=== PATIENT | female | born 1970 | race Caucasian/White ===

== ENCOUNTER → 2016-07-22 | Outpatient (CLI) | payer MEDICAID ==
[~2016-07-22] MED LIST: PERCOCET 5-3251 EACH PO; TAMOXIFEN CITRA20 MG PO; ULTRAM50 MG PO
== END | disposition disaster alternative care site (69) ==
LOC: GRAD 10:24
PROVIDERS: Family Medicine
DX: M54.9 Dorsalgia, unspecified (principal); D49.7 Neoplasm of unspecified behavior of endocrine glands and other parts of nervous system; M84.48XD Pathological fracture, other site, subsequent encounter for fracture with routine healing; M48.04 Spinal stenosis, thoracic region; M89.9 Disorder of bone, unspecified; K76.89 Other specified diseases of liver; R20.0 Anesthesia of skin; R93.7 Abnormal findings on diagnostic imaging of other parts of musculoskeletal system

== ENCOUNTER 2016-07-31 14:00 | Inpatient (IN) | payer MEDICAID ==
[~2016-07-31] VITALS: Ht 167.6 cm; Wt 80.3 kg
--- NOTE | ~2016-07-31 | LTR ---
PATIENT'S NAME: ANDREW HUNT [facility] AGE: 45 Y [address] ROOM: [place] [address] LOCATION: [facility] [place] ADMIT DATE: 08/01/2016 Letter DISCHARGE DATE: 08/07/2016 FAMILY PHYSICIAN: Rufus Lopez MD ATTENDING PHYSICIAN: Diana Palacios August 07, 2016 Re: ANDREW HUNT [facility] Hematology and Oncology Ms. Corey Perez was admitted to [facility] and seen on Dr. Palacios's Surgical Service. On 08/01/2016, Dr. Palacios performed a bilateral laminectomy with decompression of spinal cord, removal of epidural tumor, and a part of T2 and T3. He performed posterior instrumentation with pedicle screws bilaterally at T1, T2, T4, and T5. He performed a posterior fusion with morselized allograft bone. He used the frameless stereotactic system for navigation and used the O-arm for intraoperative localization. The patient tolerated the procedure well and was discharged on the 5th postoperative day. Dr. Whitaker saw the patient. The tissue revealed adenocarcinoma. The hormone receptor and HER-2 oncogene status are still being assayed. Dr. Whitaker recommended the patient stay on tamoxifen until she returned to our office on 08/22/2016. The patient will get an MRI of the brain and a bone scan as an outpatient. The patient is still premenopausal, so the potential benefit of an oophorectomy perhaps followed by an aromatase inhibitor and possibly palbociclib if the patient is not treated on a clinical trial would be warranted. There probably is a clinical trial that she would be eligible for. If the patient has nonmeasurable disease, however, she would not be eligible for E2112. The patient was seen by Dr. Scales in consultation and Dr. Gasca will evaluate her for the potential benefit of postoperative radiation therapy. MD JAMIE Dove/kathleen /[id number] PATIENT'S NAME: ANDREW HUNT [facility] AGE: 45 Y [address] ROOM: [place] [id number] LOCATION: [facility] ADMIT DATE: 08/01/2016 Letter DISCHARGE DATE: 08/07/2016 FAMILY PHYSICIAN: Rufus Lopez MD ATTENDING PHYSICIAN: Diana Palacios CC: MD Shelbi Lopez MD, PhD Diana Palacios MD
--- NOTE | ~2016-07-31 | CONS ---
PATIENT'S NAME: ANDREW HUNT [facility] AGE: 45 Y [address] 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 Dear Doctor: Ms. Andrew Perez was seen in routine inpatient consultation today. As you recall, this is a 45-year-old white female with a previous history of two primary carcinomas of the breast in the left breast, initially staged as stage IIA, T2 N0 M0, and T1 N0 M0 adenocarcinoma of the left breast, status post left mastectomy on 11/07/2011. The patient , prior to that, had had a mammogram which revealed a 0.9 cm lesion in the retroareolar area and a second lesion in the far posterior central left breast. The patient underwent a mastectomy revealing one lesion measuring 2.7 cm in size, the other measuring 1.4 cm in size. She was ER positive, TN positive, HER2 2+ by IHC and negative by FISH. The patient did not undergo adjuvant chemo or radiotherapy, was placed on tamoxifen, and recently started having complaints of back pain which brought her to the attention of physicians. The patient underwent scans which revealed the patient to have multiple lesions in the thoracic spine and multiple areas of the back including T2-T3, T3-T4, C7, T1, T5, T9, and L2. Also noted were at least two large lesions in the liver, which were suspicious. The T3 lesion had a pathologic fracture with epidural tumor resulting in canal stenosis which was moderately severe. The patient subsequently on 08/01/[address] Palacios's care where she had a bilateral laminectomy with decompression of the spinal cord and removal of the epidural tumor at T3 and part of T2; posterior instrumentation with pedicle screw placement at T1, T2, T4, and T5; posterior fusion with morselized allograft bone; and use of frameless stereotactic system for navigation. PATIENT'S NAME: MARIA TERESA PEREZ [facility] AGE: 45 Y [address] ROOM: [place] [address] [place] [facility] [place]MIT DATE: 08/01/2016 Oncology Report DISCHARGE DATE: FAMILY PHYSICIAN: Rufus Lopez MD ATTENDING PHYSICIAN: Diana Palacios We are awaiting final pathology on this patient. Pathology has come back as metastatic adenocarcinoma. ER status, TN status, and HER-2/micky status have been ordered. We are asked to see this patient in inpatient consultation. When seen today, the patient is lying in a chair. She is doing reasonably well, but she does complain of back pain. She has a dressing in place. Her brother is in the room. The patient indicates that she has had the back pain for a period of time which brought her to the attention of her physician. She indicates she is aware of the fact that she had lesions seen on scan. She states that she is not aware of final pathology as of yet. We indicated to the patient that pathology was pending and we would await final pathology including ER, TN, and HER-2/micky status. The patient otherwise indicates she is doing well. Denies fevers, chills, night sweats, and weight loss. ALLERGIES: NO KNOWN DRUG ALLERGIES. MEDICATIONS: Current medications include: 1. Ultram. 2. Tamoxifen. 3. Phenergan. 4. Zofran. 5. Nubain. 6. Morphine. 7. Fleet. 8. Dulcolax. 9. Percocet. 10. Milk of magnesia. 11. Tylenol. 12. Valium. 13. Zofran. PAST SURGICAL HISTORY: Positive for left-sided mastectomy in 2011. The patient has had two C sections and a D and C. PAST MEDICAL HISTORY: Positive for significant problems with her eyesight, history of breast cancer diagnosed in 2011. PATIENT'S NAME: MARIA TERESA PEREZ [facility] AGE: 45 Y [address] ROOM: [place] [address] [place]: [facility] [place] ADMIT DATE: 08/01/2016 Oncology Report DISCHARGE DATE: FAMILY PHYSICIAN: Rufus Lopez MD ATTENDING PHYSICIAN: Diana Palacios FAMILY HISTORY: The patient indicates she had a grandparent, who had a possible liver cancer, grandmother may have had a gynecologic malignancy. She indicates her father was recently diagnosed with a head and neck cancer. SOCIAL HISTORY: The patient was born in [place], lives in [place], [place]. The patient is . 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 She indicates she does not and did not smoke, does not drink alcohol, no history of drug use. The patient gives no previous history of radiation therapy or chemotherapy. She does indicate she has been on tamoxifen. REVIEW OF SYSTEMS: GENERAL: The patient denies headaches. Indicates her hearing is within normal limits. EYES: Vision: The patient does have significant problems with vision. ORAL CAVITY: No complaints or problems with oral cavity. NECK: No complaints of problems with her neck. LUNGS: No problems with her lungs noted. HEART: No problems with arm pain. STOMACH: No problems with reflux noted. No problems with blood in her stool. : No problems passing her urine. No blood in her urine noted. GYNECOLOGIC: The patient is a 3, para 2. MUSCULOSKELETAL: The patient denies any history of fracture. ENDOCRINE: No history of thyroid problems or diabetes. PHYSICAL EXAMINATION: VITAL SIGNS: Include a temperature of 98.8, a pulse of 82, a blood pressure of 124/69, a weight of 76 kg. GENERAL: A well-developed, well-nourished white female, in no apparent distress. HEAD AND NECK: Normocephalic, atraumatic. Extraocular motions are intact. Oral cavity: No masses or mycotic lesions. Neck with no masses noted. The patient does have a triple-lumen catheter in place in the area of the right neck with appropriate dressing in place. Examination of the patient's back reveals a dressing in place in the upper thoracic area. This appears to be within normal limits. No areas of breakdown. No bleeding. No areas of infection noted. CHEST: The patient's right axilla is within normal limits. Right breast soft, nontender. No masses noted. No discharge elicited. Left axilla within normal limits. Left chest wall with a healed surgical scar. The patient does have a breast cancer tattoo noted in the upper inner quadrant of the left chest wall. ABDOMEN: Soft, nontender. PATIENT'S NAME: ANDREW HUNT [facility] AGE: 45 Y [address] ROOM: [id number] [place], [place] [address] LOC[place]: [facility] [place]MIT DATE: 08/01/2016 Oncology Report DISCHARGE DATE: FAMILY PHYSICIAN: Rufus Lopez MD ATTENDING PHYSICIAN: Diana Palacios PELVIS: Pelvic region within normal limits. It is soft and nontender. Limited physical exam. EXTREMITIES: Without clubbing, cyanosis, or edema. The patient does have bilateral JASMIN stockings in place. NEUROLOGIC: The patient is alert and oriented x3. Cranial nerves with the exception of vision appear to be within normal limits. Strength appears to be within normal limits, upper and lower extremities. We did not attempt to walk the patient. MINI MENTAL EXAM: Grossly normal. This concluded the limited physical exam of this patient. LABORATORY DATA: The patient has had multiple scans done including a MRI of the thoracic spine with and without contrast done on 07/22. This revealed multiple bony lesions including T2-T3, T3-T4. Smaller lesions present in C7, T1, T5, T9, L2. Two large lesions noted in the liver, highly suspicious for metastatic disease. Pathology initially is read as that of adenocarcinoma, consistent with her previous carcinoma of the breast diagnosed in 2011. ER status, TN status, and HER2/micky status are pending. ICD-10. IMPRESSION: A 45-year-old white female with metastatic adenocarcinoma of the breast. Final pathology regarding the receptor status pending. PLAN: We discussed with the patient the options available to her. We indicated to her we would await final pathology and Medical Oncology consult. Further, we indicated to her that given that she had surgery to the area of the thoracic spine and had an appliance in place, we would consider this area for radiotherapy in an attempt to sterilize the region and minimize the chance of recurrence. We went over the potential risks and benefits of radiation therapy, indicated we would consider her for radiotherapy per NCCN guidelines to be given to a dose of 3000 cGy in 10 fractions at 300 cGy per day. The patient understood the conversation and asked appropriate questions. These were answered to her satisfaction. The patient will be brought down for simulation sometime early next week. We would anticipate starting her on radiotherapy to the affected area at about 2-3 weeks post-surgery. We thank you for allowing us to consult on this most pleasant patient. Sincerely, PATIENT'S NAME: ANDREW HUNT [facility] AGE: 45 Y [address] ROOM: [address] [place] [id number] LOC[place]: [facility] [place]MIT DATE: 08/01/2016 Oncology Report DISCHARGE DATE: FAMILY PHYSICIAN: Rufus Lopez MD ATTENDING PHYSICIAN: Diana Palacios HERNANDEZ ANDRADE MD, PHD FZL/modl /[id number] CC: MD Rufus Escalera MD Chinyere N Obasi, MD d: 08/05/16 2303 t: 08/13/16 0925, CONSULTATION REPORT
--- NOTE | ~2016-07-31 | CON ---
PATIENT'S NAME: ANDREW HUNT [facility] AGE: 45 Y [address] ROOM: [address] [address] [place]: [facility] [place]MIT DATE: 08/01/2016 Consultation DISCHARGE DATE: FAMILY PHYSICIAN: Rufus Lopez MD ATTENDING PHYSICIAN: Diana Palacios REFERRING PHYSICIAN: Maggie Whitaker MD This is a consult for Dr. Palacios. Dear Dr. Palacios: Ms. Corey Perez is a 45-year-old lady, who is referred for rehab/GIRP admission evaluation. She is, as you know, status post; 1. Bilateral decompression laminectomy of T3 and part of T2 and removal of epidural tumor, metastatic mostly. 2. Posterior instrumentation with pedicle screw application at bilateral T1- T2 and T4-T5. 3. Posterior fusion with morselized allograft bone T1 through T5. This was done for metastatic tumor of spine with compression of the cord in the upper thoracic spinal cord as was done on 08/01/2016, details on record. She felt that she had a heavy right shoulder marked discomfort, which was getting progressively worse. She has significant past history of left breast cancer excised in 2013 and she was followed in [facility], details of which are not very clear to me. However, she denied having any radiation or chemotherapy as much as she told me. She is, at the present time, alert and oriented x3. She can comprehend, express without difficulty. Her voice is clear. She can breathe and saturate at room air without difficulty. VITAL SIGNS: Blood pressure 129/67, temperature 98.6, pulse 91 and regular, respiration rate 20, she is 5 feet and 6 inches tall, and weighs 80.3 kg. At the present time, she can swallow, can move all 4. Muscle strength throughout is about 4-/5. Cannot endure though. Can transfers with supervision to minimum assistance of 1 with contact guard assistance at times. She can follow instructions without much difficulty. At this time, she can ambulate up to 75 feet x1 with a front-wheeled walker and a gait belt with contact guard assistance. PATIENT'S NAME: ANDREW HUNT [facility] AGE: 45 Y [address] ROOM: [address] [address] LOC[place]: [facility] [place]MIT DATE: 08/01/2016 Consultation DISCHARGE DATE: FAMILY PHYSICIAN: Rufus Lopez MD ATTENDING PHYSICIAN: Diana Palacios At this time, she is neurologically intact. Deep tendon reflexes are slightly brisk throughout bilateral upper and lower extremities. Sensation is within normal limits. She can control both bowel and bladder. She is on the following medications; 1. Toradol. 2. Tamoxifen. 3. Senna and DSS. 4. Phenergan. 5. Zofran. 6. Nubain. 7. Morphine sulfate. 8. Narcan. 9. Fleet enema. 10. Dulcolax suppository. 11. MOM. 12. Percocet. 13. Tylenol. 14. Valium. 15. NaCl 0.9%. 16. Lactated Ringer. At this time, she is doing fairly well given the recent surgery. I feel that this lady will benefit from intensive rehabilitation of about 10 to 14 days, aiming to discharge on modified independence and follow on outpatient basis. She has been initiated on PT and OT, which I will continue. Please see my notes. All the above was explained to her in detail. Please see my notes on chart. All the above was explained to her in detail and she verbalized understanding and agreement with plan of care. Thank you for this referral. MD JULISSA VILLARREAL/briannal /[id number] d: 08/04/162023 t: 08/06/16 0811, CONSULTATION REPORT
--- NOTE | ~2016-07-31 | CON ---
PATIENT'S NAME: ANDREW HUNT [facility] AGE: 45 Y [address] ROOM: [id number] [place], [place] [address] LOCATION: [facility] [place] ADMIT DATE: 08/01/2016 Consultation DISCHARGE DATE: FAMILY PHYSICIAN: Rufus Lopez MD ATTENDING PHYSICIAN: Diana Palacios'bogdan provider 08/06/16 AO DATE OF CONSULTATION: 08/05/2016 REFERRING PHYSICIAN: Jakob Whitaker MD HISTORY OF PRESENT ILLNESS: The patient is a 45-year-old female who presented Dr. Lopez with numbness and tingling in her right axilla. She said that she was diagnosed when she was younger with some bone on bone on one of her disks in her back, and she thought the numbness was just from old disk issues. However, she had increasing problems with some numbness and tingling in her right arm and she did go and see Dr. Lopez who performed x-rays and MRI scan of her thoracic spine on 07/22/2016. On 07/22/2016, the patient had an MRI of her T-spine, which showed a T3 diffusely infiltrating tumor with moderate pathologic fracture, asymmetry extending to the right with epidural tumor effacement on the right T2-T3, and T3-T4 intervertebral foramina with moderate to severe canal stenosis without cord compression. On the MRI scan, there was also a suspicious lesion in the liver as well. The patient was referred to Dr. Palacios who performed debulking surgery of her T3 vertebral body on 08/01/2016. The pathology came back as adenocarcinoma which had a similar appearance to her prior breast cancer. ER, MS, and HER-2 stains will be performed on this tissue The patient has been doing well since surgery. She has not had a bowel movement since she has been in the hospital, but she is passing gas and having gurgling. She states that she is having a little bit of discomfort/aching in her arms at times since surgery, but her pain is fairly well managed. The patient was diagnosed with a stage IIA breast carcinoma on 11/07/2011; she had 2 separate primaries, a T2 lesion, it was 2.7 cm and a 1.4 cm T1c lesion. 0/3 lymph nodes had metastatic disease. She was ER/MS positive and HER-2 negative. Both tumors stained similarly. She has been on tamoxifen since that time. She is being followed by Dr. Carolina through the [facility] on Tele Medicine. The patient denies any other aches or pains. She has not had any recent weight loss, abdominal pain, nausea, or vomiting. PATIENT'S NAME: ANDREW HUNT [facility] AGE: 45 Y [address] ROOM: [id number] [place], [place] [address] LOCATION: [facility] [place] ADMIT DATE: 08/01/2016 Consultation DISCHARGE DATE: FAMILY PHYSICIAN: Rufus Lopez MD ATTENDING PHYSICIAN: Diana Palacios PAST MEDICAL HISTORY: Really significant for her breast cancer. Otherwise, she is pretty healthy. SOCIAL HISTORY: She does live here in [place]. She is . She is a nonsmoker and nondrinker. FAMILY HISTORY: Maternal grandfather had liver cancer and in his 60s. Maternal grandmother had ovarian or cervical cancer and in her late 60s. REVIEW OF SYSTEMS: Otherwise, her 14-point review of systems is negative. PHYSICAL EXAMINATION: VITAL SIGNS: Stable. She has been afebrile this hospital stay. GENERAL: The patient is a very pleasant, alert, oriented, in no distress. HEENT: No scleral icterus is present. NECK: Supple without adenopathy or thyromegaly. Trachea is in the midline. There is no masses present. She does have an IJ subclavian catheter in her right neck. On her posterior lower neck, there is a bandage over her recent surgical incision. HEART: Regular without murmur, S3, or S4. LUNGS: Clear to auscultation anteriorly. ABDOMEN: Bowel sounds are present, soft, and nontender. There is organomegaly, masses, or tenderness present. EXTREMITIES: She has no axillary or inguinal adenopathy or peripheral edema. SKIN: No skin rash, petechia, or ecchymosis. NEURO: No focal neurologic deficits noted. Cranial nerves appear to be intact. ASSESSMENT AND PLAN: 1. Metastatic adenocarcinoma, likely secondary to her primary cancer, currently still on tamoxifen therapy. 2. Metastatic disease to her bones and liver. RECOMMENDATIONS: I did talk with the patient about her diagnosis and the different treatment options. I told her I would like to finish her staging with a bone scan and an MRI scan of her brain, but that can be done when she is feeling a little bit better and able to move around a little bit better. I talked with her about palbociclib (Ibrance) along with letrozole or Faslodex as treatment for her metastatic breast cancer. I told her that Gley is the PATIENT'S NAME: ANDREW HUNT [facility] AGE: 45 Y [address] ROOM: [address] [address] LOCATION: [facility] [place] ADMIT DATE: 08/01/2016 Consultation DISCHARGE DATE: FAMILY PHYSICIAN: Rufus Lopez MD ATTENDING PHYSICIAN: Diana Palacios standard first-line therapy for hormone positive metastatic breast cancer and it is extremely well tolerated. I did tell her it was very expensive and we will see if we can work in conjunction with the [facility] to get this medication covered. She may need to go to [place] to be evaluated at some point. I will send our nurse coordinator over from our office to see if we can help with the coordination of the patient's medications, getting her followup MRI scan along with bone scan set up prior to having a followup visit. She is planning on starting radiation in approximately a week to week and a half and they are planning on 10 treatments. JAKOB WHITAKER MD CML/modl /[id number] CC: Shelbi Scales MD, PhD MD Rufus Miller MD Peter T Silberstein, MD Corrected cc'd provider 08/06/16 AO d: 08/06/16 0029 t: 08/16/16 1724, CONSULTATION REPORT
--- NOTE | ~2016-07-31 | OR ---
PATIENT'S NAME: MARIA TERESA [facility] AGE: 45 Y [address] ROOM: [place] [address] LOCATION: [facility] ADMIT DATE: 08/01/2016 OR/Procedure Report DISCHARGE DATE: FAMILY PHYSICIAN: Rufus Lopez MD ATTENDING PHYSICIAN: Diana Nation SURGEON: Diana Nation MD CUTTER AND PASTER PRESS CLIPPINGS: Skyla Weinstein. 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 PROCEDURES PERFORMED: 1. Bilateral laminectomy with decompression of spinal cord and removal of epidural tumor at T3 and part of T2. 2. Posterior instrumentation with pedicle screws bilaterally at T1, T2, T4, and T5. 3. Posterior fusion with morselized allograft bone. 4. Use of frameless stereotactic system for navigation and use of O-arm for intraoperative localization. ANESTHESIA: General. ANESTHESIA PROVIDER: Ariel Norton MD. HISTORY: This patient is a 45-year-old female with known history of breast cancer. The patient presented with pain behind her right shoulder blade. Imaging studies showed spinal cord compression from presumably metastatic tumor to the T3 vertebra. Treatment was recommended. Treatment options included radiation therapy, needle biopsy, and surgery. The options were discussed with the patient. The risks and benefits were reviewed. The patient consented to have surgery done. She was, therefore, brought to the operating room for surgery. PROCEDURE IN DETAIL: In the operating room, the patient was placed in a supine position. Anesthesia was induced. She was intubated. Appropriate support lines were placed. The patient's head was secured in a 3-pin Alvarez head of precision targeting. The patient was then turned to a prone position on a Isaiah table taking care to protect all pressure points. The incision was marked out in the interscapular area in the midline. The whole area was prepped and draped in a sterile fashion. Local anesthesia was infiltrated. The #10 blade was used to open the incision and deepen it to the fascial layer. The fascia PATIENT'S NAME: [facility] AGE: 45 Y [address] ROOM: [place] [id number] LOCATION: [facility] ADMIT DATE: 08/01/2016 OR/Procedure Report DISCHARGE DATE: FAMILY PHYSICIAN: Rufus Lopez MD ATTENDING PHYSICIAN: Diana Nation N was opened with Bovie. Self-retaining retractors were placed. The fascia was opened with a Bovie and the tips of the spinous processes became visible. The paraspinous muscles were dissected off the spinous processes and lamina of T1, T2, T3, T4, and T5. We could see that the T3 spinous process was very loose indicating tumour involvement as was already seen on the MRI scan. Having achieved the desired exposure, the Stealth reference frame was attached to the spinous process of C7. The O-arm was brought in and an image was acquired. The O-arm image was merged with the Stealth system to obtain a three-dimensional picture of the spine. Using this three-dimentional picture, pedicle screws were placed bilaterally at T5, T4, T2, and T1. We did not put screws into T3 as this level was already compromised with metastatic tumor. After the pedicle screw placement, decompression was carried out at T3. We could see the tumor quite easily on the dorsal surface of the dura and decompression was carried out until dura could be seen. It was necessary to shave off a little bit of the inferior rim of the T2 vertebra to achieve satisfactory decompression. Irrigation was used to wash out the debris and hemostasis was achieved. The pedicle screws were connected with rods bilaterally. The rods were held down inside the pedicle screw heads with set screws. Next, the posterior surface of the lamina from T1-T5 were decorticated with a high-speed drill. This was in preparation for the fusion. Cancellous bone chips were mixed with demineralized bone matrix, and this mixture was placed above the decorticated area. A piece of DuraGen was used to cover the dura after the decompression was completed. Lastly, a cross-link was used to connect the two rods from side to side. This was a very stable construct. Final hemostasis was achieved and the incision was closed with appropriate suture materials. Nylon was used to close the skin. A sterile dressing was applied. The patient was then rolled back to a supine position. Her head was taken out of the Alvarez head of precision targeting. Her anesthesia was reversed. She was extubated and taken to the recovery room to complete her recovery. I was present during this entire procedure and carried out all the critical parts of the procedure assisted by operating room nurses. There were no apparent intraoperative complications. Estimated blood loss was less than 500 mL, and there was no reason for blood transfusion. The final pathology is pending; however, in all likelihood, this is metastatic tumor from the patient's known breast cancer. PATIENT'S NAME: [facility] AGE: 45 Y [address] ROOM: [place] [address] LOCATION: [facility] ADMIT DATE: 08/01/2016 OR/Procedure Report DISCHARGE DATE: FAMILY PHYSICIAN: Rufus Lopez MD ATTENDING PHYSICIAN: Diana Nation DIANA NATION MD CNO/modl /[id number] CC: Shelbi Scales MD, PhD Maggie Whitaker MD d: 08/02/16 0021 t: 08/07/16 1552, OPERATIVE SUMMARY
[~2016-07-31 14:00] MED LIST changes: -PERCOCET 5-3251 EACH PO
--- NOTE | 2016-08-01 17:42 | NUR ---
Significant Event: From PACU at 1530. Dressing to anterior neck/shoulders C/D/I. Morphine SAP ABAP PROGRAMMER. Room air. R) IJ quad lumen. Perez patent. Follow up:
--- NOTE | 2016-08-02 06:48 | NUR ---
[id number] supervised [facility] Box Brander.
--- NOTE | 2016-08-02 06:51 | NUR ---
Significant Event: Dressing is clean, dry and intact. CSM WNL. Perez catheter. 1-2 assist with transfers. On a Morphine SAMPLES AND REPAIRS PREPARER. On 1 L of oxygen nasal cannula. Valium at 0033. Has a R) IJ. Follow up:
[2016-08-02 10:53] LABS: HEMATOCRIT 28.5 % (33.0-46.0); HEMOGLOBIN 8.8 g/dL (10.0-15.0)
--- NOTE | 2016-08-02 18:00 | NUR ---
Significant Event: PT ALERT AND ORIENTED. REPOSITIONS SELF IN THE BED. COPYWRITING INTERN STOPPED THIS AFTERNOON AND PERCOCET STARTED. PINZON CATH INTACT. NEEDS TO BE DC;D TOMORROW AM. IV FLUIDS SALINE LOCKED. 12 MONITOR OF COPYWRITING INTERN FLOW SHEET. RT IJ INTACT. SALIN LOCKEDONLY RT ARM B/P 02 ON 1 LPMPT CAN BE UP WITHOUT A BRACE PER DR NATION. FAMILY IN THE ROOM Follow up:
--- NOTE | 2016-08-03 03:58 | NUR ---
Patient alert and oriented x3, very pleasant and cooperative, dressing clean dry and intact to posterior neck, taking percocet for pain control, folely catheter to be removed this am, very reluctant to move, to have cat scan this morning
[2016-08-03 06:17] LABS: CREATININE 0.6 mg/dL (0.5-1.1); ESTIMATED GFR (MDRD EQUATION) > 60
--- NOTE | 2016-08-03 14:01 | NUR ---
Significant Event:AOx3. VSS. Patient complained of numbness of tingling earlier this morning in bro. arms but now they are just aching. Dr. Palacios seen patient today. CT scan done this a.m. Up with 1 assist. Dressing to posterior neck is C/D/I. Percocet given for pain. Follow up:
--- NOTE | 2016-08-04 04:38 | NUR ---
Patient alert and oriented x3, very pleasant and cooperative, dressing to posterior neck clean dry and intact, transfers well one assist with walker and gaitbelt, csm with in normal limits, has rested well, had cat scan yesterday not sure if MD has gone over results.
--- NOTE | 2016-08-04 16:07 | NUR ---
Significant Event:Up in chair for one hour. Up to bathroom. [place] 1 tab last at 1535. Drsg to neck CDI. Family at bedside. LS clear. Patient doesnt have contacts and having hard time to see. One assist with walker/gb. Left hand numb at times. Right IJ intact. Follow up:transfer to [facility] when available
--- NOTE | 2016-08-04 22:23 | NUR ---
Significant Event: Patient alert and oriented. Equal strength to extermities. Patient reports numbness and tingling to right arm and hand at times. Dressing to posterior neck dry and intact. Valium given for muscle aches/spasms with relief noted. Right IJ flushes well with good blood return noted. Pleasant and cooperative with cares. Follow up: continue plan of care.
--- NOTE | 2016-08-05 05:06 | NUR ---
Significant Event: BEEN REPOSITIONED, AMBULATED TO BR WITH ONE ASSIST, VOIDED. PAIN RATE 5, IS TOLERABLE, REFUSED PAIN MED OFFERING. Follow up:
--- NOTE | 2016-08-05 11:30 | NUR ---
RECEIVED REFERRAL TO [facility] FOR PATIENT TO GO TO INPT REHAB. REFERRAL MADE TO [facility] HAD TO LEAVE A MESSAGE ON HER VOICE MAIL.
--- NOTE | 2016-08-05 13:00 | NUR ---
I STILL HAVE NOT HEARD BACK FROM DAVID ATTEMPTED TO CONTACT HER AGAIN. HAD TO LEAVE A MESSAGE ON HER VOICE MAIL.
--- NOTE | 2016-08-05 15:30 | NUR ---
SPOKE TO [facility] ON [facility], SHE REPORTS THAT SHE HAS SPOKEN TO OT AND PT AND THEY DO NOT FEEL THAT ANDREW WILL NEED INPT REHAB. I MEET WITH ANDREW AND UPDATEDH HER SHE IS OK WITH THIS. SHE LIVES ALONE IN OWN HOME AND REPORTS THAT HER MOM WILL BE STAYING WITH HER. SHE WOULD LIKE A FRONT WHEELED WALKER FROM [facility]. I SPOKE TO DR. NATION AND HE IS PLANNING SENDING PATIENT HOME TOMORROW. I MADE REFERRAL FOR FRONT WHEELED WALKER TO [facility]. PAPER WORK FOR THE WALKER PLACED ON THE CHART FOR DR. NATION TO COMPLETE.
--- NOTE | 2016-08-05 19:02 | NUR ---
Significant Event: Patient A/O x3. VS stable on RA. 1 assist transfer with walker and gaitbelt. Patient uses call light appropriately. Patient complains of pain this shift, Ultram and Percocet given with relief noted. Patient denies numbness or tingling to extremities. Equal strength. R) 4 Lumen IJ SL with good blood return. IV to R) FA SL. Patient pleasant and cooperative with cares. Follow up:
--- NOTE | 2016-08-06 04:03 | NUR ---
NEURO: A&O. CMS WNL. Poor eyesight. CARDIO: WNL. RESP: Upper 90's on RA. GI/: Output adequate. No nausea. Regular diet. SKIN: changed dressing last night. CDI. IV: 4 lumen IJ. left side. SL. ACTIVITY: SBA with gait blet and walker. PAIN: Percocet given x 2 this shift. Worls well to control pain. PLAN: Discharge to home today.
--- NOTE | 2016-08-06 10:00 | NUR ---
SPOKE TO PATIENT AND HER DISCHARGE GOALS. PATIENT IS HOPING TO GO HOME TODAY. RECEIVED REFERRAL FOR FRONT WHEELED WALKER. I MADE REFERRAL FRONTIRE THEY WILL DELIVER THE WALKER TO PATIENT'S ROOM TODAY. FAXED FINAL ORDERS TO THEM.
--- NOTE | 2016-08-06 16:59 | NUR ---
Significant Event: Patient is alert and oriented x3. Poor eyesight. VSS and on RA. Up with SBA/Walker. Was not able to practice using the cane with PT/OT due to pain. IJ to the L)side- 4 lumens, good blood return. L)AC IV, SL. Taking Percocet and ultram for pain. Relief noted. Complaints of also a "hot feeling" down her arms at times. Denies numbness and tingling. Equal strength. Dressing was rolled up a small amount on her back. There is a small open red dot sore right below the dressing. Dressing is clean/dry/intact. Hoping to go home later tonight when Dr. Palacios rounds. Cooperative with [facility].
--- NOTE | 2016-08-06 17:20 | NUR ---
CHECKED WITH PATIENT AND SHE STILL HAS NOT RECEIVED THE FRONT WHEELED WALKER, I NOTIFIED ZURIJANICE SPOKE TO THE ANSWEREING SERVICE AND THEY ARE GOING TO CONTACT SOMEONE TO FIND OUT WHERE THE WALKER IS.
--- NOTE | 2016-08-06 21:25 | NUR ---
A-SCREENED D/T LOS STATUS METASTATIC SPINE TUMOR REMOVAL AND THORACIC SPINAL CORD DECOMPRESSION. HX OF BREAST CA; ON TAMOXIFEN. HT: 66 IN. WT: 80.3 KG. BMI 28.5. NO REPORT OF WT LOSS LOGISTICS PROJECT MANAGER LABS REVIEWED MEDS: ULTRAM, SENOKOT, PHENERGAN, ZOFRAN, MORPHINE, NARCAN, VALIUM, PRN BOWEL MEDS. DIET RX: REGULAR. PO INTAKE 25-100%; AVG PO INTAKE SINCE ADMIT IS 73%. EST NUTR NEEDS: [id number] KCALS (25-30 KCALS/KG) 80-96 GM PROTEIN (1.0-1.2 GM/KG) 1 ML FLUID/KCAL D-NOT AT NUTRITION RISK; NO NUTRITION DX IDENTIFIED. I-CONTINUE W/CURRENT DIET RX M/E-WILL ASSIST NEEDED
--- NOTE | 2016-08-07 05:16 | NUR ---
NEURO: A&O. CMS intact. Denies n/t. Poor eyesight. CARDIO: WNL. Foot pumps. RESP: High 90's on RA. GI/: Voids adequate amounts- ambulating to bathroom. BM yesterday- none this shift. SKIN: Dressing to upper back CDI. IV: 4 lumen IJ right neck. SL. Left PIV. SL ACTIVITY: SBA with gaitbelt and walker. PAIN: Percocet working well to control pain. PLAN: Discharge home today.
[2016-08-07] MEDS ORDERED: PERCOCET 5-3251 EACH PO (10:22)
--- NOTE | 2016-08-07 12:31 | NUR ---
D:Orders received for patient to be dismissed. I:Dismissal instructions were prepared by the virtual nurse and reviewed with the patient in person at the bedside due to the patient's poor vision. The following information was reviewed with the patient: diet and activity recommendations for home, dressing and incisional care for home, s/s of infection to monitor for and to report to MD if any develop, home medications/new prescription medications, and plans for follow up appointment with Dr. Palacios, Dr. Whitaker and Dr. Gasca. Luis Enrique teaching was given to and reviewed with the patient on the following topics: Discharge Instructions for a Laminectomy, Percocet and Preventing DVT's. R:The patient verbalized understanding of above teaching. The questions she had regarding dressing care for home and regarding her MRI/Bone scan were addressed. The patient then denied having any further questions at the time. P:The patient will be dismissed to home later this afternoon when her ride arrives. Mike IBARRA
--- NOTE | 2016-08-14 17:03 | NUR ---
Post discharge follow up call. Patient doing well. Mother is checking incision daily and it looks fine. No redness or swelling. Patient states incision feels "tight". No concerns or comments about hospitalization. She is aware of her follow up appointments.
== END 2016-08-07 14:05 | disposition disaster alternative care site (69) | DRG 29 ==
LOC: GMSU 08-01 05:50 → G3N 08-01 05:50 → GMSU 08-03 16:26
PROVIDERS: Internal Medicine Hematology & Oncology; ADMIT Neurological Surgery
PROC: 00BX0ZX Excision of Thoracic Spinal Cord, Open Approach, Diagnostic (ICD-10-PCS; principal; 2016-08-01)
PROC: 0RG7071 Fusion of 2 to 7 Thoracic Vertebral Joints with Autologous Tissue Substitute, Posterior Approach, Posterior Column, Open Approach (ICD-10-PCS; 2016-08-01)
PROC: 8E0WXBF Computer Assisted Procedure of Trunk Region, With Fluoroscopy (ICD-10-PCS; 2016-08-01)
DX: C79.49 Secondary malignant neoplasm of other parts of nervous system (principal); G95.29 Other cord compression; C78.7 Secondary malignant neoplasm of liver and intrahepatic bile duct; C79.51 Secondary malignant neoplasm of bone; M84.58XA Pathological fracture in neoplastic disease, other specified site, initial encounter for fracture; Z85.3 Personal history of malignant neoplasm of breast; Z79.899 Other long term (current) drug therapy
CPT/HCPCS: C1713; C1763; J0690; J1885; J2001; J2250; J2270; J2405; J3010; J3360; J7030; J7120; Q9967

== ENCOUNTER → 2016-08-20 | Outpatient (CLI) | payer OTHER, MEDICAID ==
[~2016-08-20] MED LIST changes: +PERCOCET 5-3251 EACH PO
== END | disposition disaster alternative care site (69) ==
LOC: GRAD 08-19 11:00
DX: C50.412 Malignant neoplasm of upper-outer quadrant of left female breast (principal); C79.51 Secondary malignant neoplasm of bone; G93.9 Disorder of brain, unspecified
CPT/HCPCS: A9503; A9577

== ENCOUNTER → 2016-12-20 | Outpatient (CLI) | payer OTHER, MEDICAID | END | disposition disaster alternative care site (69) | LOC: GBCOE 08:52 | DX: Z12.31 Encounter for screening mammogram for malignant neoplasm of breast (principal); Z85.3 Personal history of malignant neoplasm of breast | CPT/HCPCS: G0202 ==